=== PATIENT | male | born 1945 | race Caucasian/White ===

== ENCOUNTER 2022-01-16 08:40 | Day surgery (SDC) | payer OTHER ==
[2022-01-11 16:34] VITALS: BMI 25.0
[2022-01-16] MEDS ORDERED: LIDOCAINE 1% P/F 10 MG/ML VIAL ONE ×2 (08:56→10:32)
[2022-01-16] MEDS ORDERED: BSS (NA/CA/MG/K) BALANCED SALT SOLUTION OPHTH SOLN 15 ML BOTTLE ONE ×2 (08:56→10:32)
[2022-01-16] MEDS ORDERED: NEO/POLYMYX B SULF/DEXAMETH OPHTHALMIC 5ML BOTTLE ONE ×2 (08:56→10:32)
[2022-01-16] MEDS ORDERED: CARBACHOL 0.01% INTRA-OCULAR 1.5 ML VIAL ONE ×2 (08:56→10:32)
[2022-01-16] MEDS ORDERED: TETRACAINE 0.5% OPHTH SOLN 2 ML BOTTLE ONE ×2 (08:56→10:32)
[2022-01-16] MEDS: CYCLOPENTOLATE 2% OPHTH SOLN 2 ML BOTTLE ONE ×3 (09:10→09:20)
[2022-01-16] MEDS: TROPICAMIDE 1% OPHTH SOLN 15 ML BOTTLE ONE ×3 (09:10→09:20)
[2022-01-16] MEDS: PHENYLEPHRINE 2.5% OPHTH SOLN 15 ML BOTTLE ONE ×3 (09:10→09:20)
[2022-01-16] MEDS: CIPROFLOXACIN 0.3% EYE DROPS 5 ML BOTTLE ONE ×3 (09:10→09:20)
[2022-01-16] MEDS ORDERED: MIDAZOLAM HCL 2 MG/2 ML SINGLE DOSE VIAL ONE (10:30)
[2022-01-16 11:11] VITALS: RESP 18
[2022-01-16 13:49] VITALS: BP 124/74; PULSE 62; TEMP 97.9
== END 2022-01-16 11:40 | disposition home or self-care (01) ==
LOC: FASU 08:40
PROVIDERS: ATTEND Ophthalmology
PROC: 08RJ3JZ Replacement of Right Lens with Synthetic Substitute, Percutaneous Approach (ICD-10-PCS; principal; 2022-01-16 10:43)
DX: H26.8 Other specified cataract (principal)
CPT/HCPCS: 66984; V2632

== ENCOUNTER 2024-12-23 23:09 | Observation (INO) | payer OTHER ==
[2024-12-23 23:31] VITALS: BMI 25.4
[2024-12-24 00:25] LABS: ABSOLUTE IMMATURE GRANULOCYTES 0.01 x10^3/uL (0.0-0.031); BASOPHILS # 0.01 x10^3/uL (0.01-0.08); EOSINOPHIL % 0.6 % (0.8-7.0); EOSINOPHILS # 0.03 x10^3/uL (0.04-0.54); MCHC 32.4 g/dl (32.3-36.5); MEAN CELL VOLUME 84.2 fl (79.0-92.2); MEAN PLT VOLUME 10.0 fl (9.4-12.4); MONOCYTE # 0.92 x10^3/uL (0.30-0.82); MONOCYTE % 19.0 % (5.3-12.2); RDW 14.1 % (12.2-16.6)
[2024-12-24 00:39] LABS: GLUCOSE,RANDOM 103.0 mg/dL (74-106); TOT PROT 7.2 g/dl (6.4-8.2)
[2024-12-24 00:40] LABS: CO2 21.0 mmol/L (21-32)
[2024-12-24 00:41] LABS: ALK PHOS 68.0 U/L (40-150)
[2024-12-24 00:44] LABS: SGOT/AST 33.0 U/L (5-34); SGPT/ALT 15.0 U/L (0-55)
[2024-12-24 01:06] LABS: HIV INTERPRETATION NEGATIVE (NEGATIVE)
[2024-12-24 02:24] LABS: HCV DIAGNOSTIC IN-HOUSE W/RFLX NON-REACTIVE (NONREACTIVE)
[2024-12-24 02:27] LABS: CREATININE 0.89 mg/dL (0.55-1.3)
[2024-12-24 07:38] LABS: MCHC 32.1 g/dl (32.3-36.5); MEAN CELL VOLUME 84.8 fl (79.0-92.2); MEAN PLT VOLUME 10.2 fl (9.4-12.4); RDW 14.1 % (12.2-16.6)
[2024-12-24 08:07] LABS: CO2 26.0 mmol/L (21-32); CREATININE 1.1 mg/dl (0.6-1.3); GLUCOSE,RANDOM 107.0 mg/dl (74-106); LDL CHOLESTEROL (ONLY DFH) 68.0 mg/dL (5-100)
[2024-12-24 09:14] VITALS: RESP 18
[2024-12-24] MEDS: ENOXAPARIN NA (PORCINE) 40 MG/0.4 ML DISP.SYRIN SQ SCH (09:32)
[2024-12-24] MEDS: SODIUM CHLORIDE 0.9% 500 ML INFUS.BAG IV ONE (10:31)
[2024-12-24 14:32] VITALS: BP 109/70; PULSE 63; TEMP 98.6
[2024-12-24] MEDS ORDERED: ROSUVASTATIN CA 5 MG TABLET PO SCH (22:00)
== END 2024-12-24 18:04 | disposition home or self-care (01) ==
LOC: FER 23:09 → FM/S 12-24 00:58 → UNDOADMOB 12-24 01:09
PROC: 3E0337Z Introduction of Electrolytic and Water Balance Substance into Peripheral Vein, Percutaneous Approach (ICD-10-PCS; principal; 2024-12-24)
PROC: 3E023GC Introduction of Other Therapeutic Substance into Muscle, Percutaneous Approach (ICD-10-PCS; 2024-12-24)
DX: R55 Syncope and collapse (principal); E78.5 Hyperlipidemia, unspecified; R00.1 Bradycardia, unspecified; Z88.8 Allergy status to other drugs, medicaments and biological substances
CPT/HCPCS: 36415; 70450-TC; 71045-TC-FY; 80048; 80053; 80061; 82550; 83735; 84484; 85025; 85027; 85379; 86803; 87389; 87637-QW; 93005; 93306-TC; 93880-TC; 96372; 97116-GP; 97161-GP; 99285-25; G0378